=== PATIENT | female | born 1950 | race Caucasian/White ===

== ENCOUNTER 2019-07-03 05:39 | Inpatient (IN) | payer MEDICARE ==
[~2019-07-03] VITALS: Ht 154.9 cm; Wt 58.4 kg
[~2019-07-03 05:39] MED LIST: AMIT50TA PO; CALC625T23 PO; ESTR1TAB15 PO; GABA300C10 PO; LEVO125T5 PO; MELO15TA24 PO; PRENATAL PO; PROP80TA PO; SIMV10TA3 PO; TIZA4TAB2 PO
[2019-07-03 06:32] VITALS: BP 129/85
[2019-07-03] MEDS ORDERED: LACTATED RINGERS 1,000 ML IV SCH (06:36)
[2019-07-03] MEDS ORDERED: ACETAMINOPHEN 500 MG TABLET ONE (07:04)
[2019-07-03] MEDS ORDERED: GABAPENTIN 300 MG CAPSULE ONE (07:05)
[2019-07-03] MEDS ORDERED: DEXAMETHASONE 4 MG/ML, 1ML ONE ×4 (07:10→07:46)
[2019-07-03] MEDS ORDERED: CEFAZOLIN 1,000 MG ONE ×4 (07:10→07:47)
[2019-07-03] MEDS ORDERED: PROPOFOL 10 MG/ML, 20ML ONE ×3 (07:10→11:02)
[2019-07-03] MEDS ORDERED: LIDOCAINE-MPF 2% ,5ML ONE ×2 (07:10→07:43)
[2019-07-03] MEDS ORDERED: FENTANYL PF 100 MCG/2ML ONE ×5 (07:10→12:20)
[2019-07-03] MEDS ORDERED: SUCCINYLCHOLINE 20 MG/ML, 10ML ONE (07:10)
[2019-07-03] MEDS ORDERED: BUPIVACAINE/PF 0.25% ONE (07:12)
[2019-07-03] MEDS ORDERED: LIDOCAINE/PF 0.5% ,50ML ONE (07:12)
[2019-07-03] MEDS ORDERED: SODIUM CHLORIDE 0.9% PF 10ML ONE ×2 (07:13→07:47)
[2019-07-03] MEDS ORDERED: TOBRAMYCIN SULFATE 1.2 GM IMP ONE ×2 (07:13→15:15)
[2019-07-03] MEDS ORDERED: EPINEPHRINE 1 MG/ML, 1ML ONE (07:13)
[2019-07-03] MEDS ORDERED: VANCOMYCIN 1,000 MG ONE (07:13)
[2019-07-03] MEDS ORDERED: LIDOCAINE GEL 2%, 5ML ONE (07:18)
[2019-07-03] MEDS ORDERED: LABETALOL 5MG/ML, 20ML IV PRN (07:30)
[2019-07-03] MEDS ORDERED: GABAPENTIN 300 MG CAPSULE PO ONE (07:30)
[2019-07-03] MEDS ORDERED: MEPERIDINE/PF 25MG/ML,1ML IVPush PRN (07:30)
[2019-07-03] MEDS ORDERED: HYDROmorphone 2 MG/ML, 1ML IVPush PRN (07:30)
[2019-07-03] MEDS ORDERED: ONDANSETRON 2MG/ML, 2ML IV PRN (07:30)
[2019-07-03] MEDS ORDERED: EPHEDRINE 50 MG/ML, 1ML IVPush PRN (07:30)
[2019-07-03] MEDS ORDERED: ACETAMINOPHEN 500 MG TABLET PO ONE (07:30)
[2019-07-03] MEDS ORDERED: hydrALAzine 20 MG/ML, 1ML IV PRN (07:30)
[2019-07-03] MEDS ORDERED: PROMETHAZINE 25 MG/ML, 1ML IV PRN (07:30)
[2019-07-03] MEDS ORDERED: EPHEDRINE 50 MG/ML, 1ML ONE (07:40)
[2019-07-03] MEDS ORDERED: ONDANSETRON 2MG/ML, 2ML ONE (08:04)
[2019-07-03] MEDS ORDERED: PHENYLEPHRINE 10 MG/ML ONE (08:46)
[2019-07-03] MEDS ORDERED: THROMBIN 5,000 UNIT VIAL TP ONE (09:12)
[2019-07-03] MEDS: FENTANYL PF 100 MCG/2ML IV PRN ×5 (11:28→12:42)
[2019-07-03] MEDS ORDERED: OXYcodone 5 MG/5 ML ORAL.SOL UDC ONE ×2 (11:31→11:48)
[2019-07-03] MEDS: OXYcodone 5 MG/5 ML ORAL.SOL UDC PO PRN ×2 (11:32→11:50)
[2019-07-03] MEDS ORDERED: METHOCARBAMOL 1000MG/10 ML IV STA (12:14)
[2019-07-03] MEDS ORDERED: METHOCARBAMOL 1,000 MG in DEXTROSE 5% 100 ML IV ONE (12:30)
[2019-07-03] MEDS ORDERED: HYDROmorphone 2 MG/ML, 1ML ONE (12:44)
[2019-07-03] MEDS ORDERED: LORazepam 2 MG/ML, 1ML ONE (12:58)
[2019-07-03] MEDS ORDERED: LORazepam 2 MG/ML, 1ML IVPush PRN (13:30)
[2019-07-03] MEDS ORDERED: KETOROLAC 30 MG/1 ML ONE (13:33)
[2019-07-03] MEDS ORDERED: hydrALAzine 20 MG/ML, 1ML ONE (13:39)
[2019-07-03] MEDS ORDERED: KETOROLAC 30 MG/1 ML IV PRN (14:00)
[2019-07-03] MEDS ORDERED: PROMETHAZINE 25 MG/ML, 1ML IM PRN (15:00)
[2019-07-03] MEDS ORDERED: DIPHENHYDRAMINE 50 MG/ML, 1ML IM PRN (15:00)
[2019-07-03] MEDS ORDERED: PHARMACY MAY ADJ FOR RENAL FX MC PRN (15:00)
[2019-07-03] MEDS ORDERED: DIPHENHYDRAMINE 50 MG CAPSULE PO PRN (15:00)
[2019-07-03] MEDS ORDERED: DIPHENHYDRAMINE 50 MG/ML, 1ML IVPush PRN (15:00)
[2019-07-03] MEDS ORDERED: SENNA/DOCUSATE TABLET PO PRN (15:00)
[2019-07-03] MEDS ORDERED: MAGNESIUM HYDROXIDE 8%, 30ML UDC PO PRN (15:00)
[2019-07-03] MEDS ORDERED: BISACODYL 10 MG SUPP PR PRN (15:00)
[2019-07-03] MEDS: HYDROcodone/APAP 10/325 MG TABLET PO PRN ×2 (15:52→20:38)
[2019-07-03] MEDS: GABAPENTIN 300 MG CAPSULE PO SCH ×2 (16:00→20:35)
[2019-07-03] MEDS: TIZANIDINE 4MG TABLET PO SCH ×2 (16:00→21:00)
[2019-07-03] MEDS: D5%-0.9% NACL+KCL 20MEQ 1,000 ML IV SCH (16:17)
[2019-07-03] MEDS: CEFAZOLIN PMX 1GM/50ML 50 ML IVPB SCH (16:17)
[2019-07-03] MEDS ORDERED: morphine SULFATE 10 MG/ML, 1ML IVPush PRN (16:30)
[2019-07-03 19:23] VITALS: BP 122/72
[2019-07-03] MEDS: SENNA/DOCUSATE TABLET PO SCH (20:35)
[2019-07-03] MEDS: SIMVASTATIN 10 MG TABLET PO SCH (20:35)
[2019-07-03] MEDS: AMITRIPTYLINE 50 MG TABLET PO SCH (20:36)
[2019-07-03] MEDS: PROPRANOLOL 40 MG TABLET PO SCH (20:37)
[2019-07-03] MEDS: ONDANSETRON 2MG/ML, 2ML IVPush PRN (20:45)
[2019-07-03] MEDS: SODIUM CHLORIDE FLUSH 10ML SYR IVF SCH (20:46)
[2019-07-03] MEDS ORDERED: METHOCARBAMOL 750 MG in DEXTROSE 5% 100 ML IV PRN (23:00)
[2019-07-04] MEDS: CEFAZOLIN PMX 1GM/50ML 50 ML IVPB SCH (00:24)
[2019-07-04] MEDS: HYDROcodone/APAP 10/325 MG TABLET PO PRN ×5 (00:25→21:27)
[2019-07-04 00:27] VITALS: BP 121/74
[2019-07-04] MEDS: METHOCARBAMOL 750 MG in DEXTROSE 5% 100 ML IV SCH ×3 (01:37→17:57)
[2019-07-04] MEDS: ONDANSETRON 2MG/ML, 2ML IVPush PRN ×2 (03:28→12:57)
[2019-07-04] MEDS: D5%-0.9% NACL+KCL 20MEQ 1,000 ML IV SCH ×3 (03:29→21:27)
[2019-07-04 05:35] LABS: BASOPHILS # (AUTO) 0.04 x10^3/uL (0-0.1); BASOPHILS % (AUTO) 0 % (0-1); EOSINOPHILS # (AUTO) 0.16 x10^3/uL (0-0.4); EOSINOPHILS % (AUTO) 1 % (1-7); LYMPHOCYTES # (AUTO) 1.56 x10^3/uL (1-3.4); LYMPHOCYTES % (AUTO) 11 % (22-44); MD NO; MEAN CORPUSCULAR HEMOGLOBIN 32.4 pg (27.0-34.8); MEAN CORPUSCULAR VOLUME 98.2 fL (80-100); MONOCYTES % (AUTO) 9 % (2-9); NEUTROPHILS # (AUTO) 10.98 x10^3/uL (1.8-6.8); NEUTROPHILS % (AUTO) 78 % (42-75); PLATELET COUNT 242 x10^3/uL (130-400); RED BLOOD COUNT 3.45 x10^6/uL (3.82-5.3); RED CELL DISTRIBUTION WIDTH 13.7 % (9.6-15.2)
[2019-07-04 05:49] LABS: ANION GAP 6 mmol/L (5-15); CALCIUM 8.3 mg/dL (8.5-10.1); CHLORIDE 110 mmol/L (98-107)
[2019-07-04 05:50] LABS: CREATININE 0.85 mg/dL (0.55-1.02)
[2019-07-04] MEDS: LEVOTHYROXINE 125 MCG TABLET PO SCH (06:23)
[2019-07-04] MEDS: PROPRANOLOL 40 MG TABLET PO SCH ×2 (06:23→17:46)
[2019-07-04 07:08] VITALS: BP 96/60
[2019-07-04] MEDS: SENNA/DOCUSATE TABLET PO SCH ×2 (09:11→21:27)
[2019-07-04] MEDS: GABAPENTIN 300 MG CAPSULE PO SCH ×3 (09:11→21:27)
[2019-07-04] MEDS: ESTRADIOL 1 MG TABLET PO SCH (09:11)
[2019-07-04] MEDS: TIZANIDINE 4MG TABLET PO SCH ×3 (09:12→21:28)
[2019-07-04] MEDS: SODIUM CHLORIDE FLUSH 10ML SYR IVF SCH ×2 (09:12→21:28)
[2019-07-04 12:50] VITALS: BP 93/55
[2019-07-04 19:42] VITALS: BP 128/73
[2019-07-04] MEDS: SIMVASTATIN 10 MG TABLET PO SCH (21:27)
[2019-07-04] MEDS: AMITRIPTYLINE 50 MG TABLET PO SCH (21:27)
[2019-07-05] MEDS: METHOCARBAMOL 750 MG in DEXTROSE 5% 100 ML IV SCH ×2 (01:43→10:32)
[2019-07-05] MEDS: HYDROcodone/APAP 5/325 TABLET PO PRN ×2 (01:53→08:58)
[2019-07-05 02:46] VITALS: BP 118/64
[2019-07-05 05:46] LABS: BASOPHILS # (AUTO) 0.02 x10^3/uL (0-0.1); BASOPHILS % (AUTO) 0 % (0-1); EOSINOPHILS # (AUTO) 0.23 x10^3/uL (0-0.4); EOSINOPHILS % (AUTO) 2 % (1-7); LYMPHOCYTES # (AUTO) 2.64 x10^3/uL (1-3.4); LYMPHOCYTES % (AUTO) 24 % (22-44); MD NO; MEAN CORPUSCULAR HEMOGLOBIN 31.8 pg (27.0-34.8); MEAN CORPUSCULAR HGB CONC 32.6 g/dL (32.4-35.8); MEAN CORPUSCULAR VOLUME 97.5 fL (80-100); MEAN PLATELET VOLUME 6.9 fL (7.4-10.4); MONOCYTES # (AUTO) 1.03 x10^3/uL (0.2-0.8); MONOCYTES % (AUTO) 10 % (2-9); NEUTROPHILS # (AUTO) 6.88 x10^3/uL (1.8-6.8); NEUTROPHILS % (AUTO) 64 % (42-75); PLATELET COUNT 197 x10^3/uL (130-400); RED BLOOD COUNT 3.18 x10^6/uL (3.82-5.3); RED CELL DISTRIBUTION WIDTH 14.1 % (9.6-15.2)
[2019-07-05 05:54] LABS: ANION GAP 6 mmol/L (5-15); CHLORIDE 112 mmol/L (98-107); CREATININE 0.74 mg/dL (0.55-1.02)
[2019-07-05] MEDS: PROPRANOLOL 40 MG TABLET PO SCH (06:53)
[2019-07-05] MEDS: LEVOTHYROXINE 125 MCG TABLET PO SCH (06:53)
[2019-07-05] MEDS: D5%-0.9% NACL+KCL 20MEQ 1,000 ML IV SCH (07:00)
[2019-07-05 08:16] VITALS: BP 107/68
[2019-07-05] MEDS: TIZANIDINE 4MG TABLET PO SCH (08:48)
[2019-07-05] MEDS: ESTRADIOL 1 MG TABLET PO SCH (08:48)
[2019-07-05] MEDS: SODIUM CHLORIDE FLUSH 10ML SYR IVF SCH (08:49)
[2019-07-05] MEDS: SENNA/DOCUSATE TABLET PO SCH (08:49)
[2019-07-05] MEDS: GABAPENTIN 300 MG CAPSULE PO SCH (08:49)
[2019-07-05 10:57] VITALS: BP 97/64
[2019-07-05] MEDS ORDERED: METH750T87 PO (11:20)
[2019-07-05] MEDS ORDERED: HYDR-3240 PO (11:21)
[2019-07-05] MEDS ORDERED: METHOCARBAMOL 750 MG TABLET PO SCH (23:00)
[2019-07-06] MEDS ORDERED: METHOCARBAMOL 750 MG TABLET PO PRN (09:30)
== END 2019-07-05 12:13 | disposition home or self-care (01) | DRG 459 ==
LOC: ORIP 05:39 → 4NE 15:00 → DCLOUNGE 07-05 11:58
PROVIDERS: ADMIT Orthopaedic Surgery Orthopaedic Surgery of the Spine; ATTEND Orthopaedic Surgery Orthopaedic Surgery of the Spine
PROC: 4A11X4G Monitoring of Peripheral Nervous Electrical Activity, Intraoperative, External Approach (ICD-10-PCS; 2019-07-03)
PROC: 0SG10A0 Fusion of 2 or more Lumbar Vertebral Joints with Interbody Fusion Device, Anterior Approach, Anterior Column, Open Approach (ICD-10-PCS; principal; 2019-07-03 07:30)
DX: M48.061 Spinal stenosis, lumbar region without neurogenic claudication (principal); R53.2 Functional quadriplegia; M41.9 Scoliosis, unspecified; M43.16 Spondylolisthesis, lumbar region; M54.16 Radiculopathy, lumbar region; E03.9 Hypothyroidism, unspecified; G43.909 Migraine, unspecified, not intractable, without status migrainosus; F17.210 Nicotine dependence, cigarettes, uncomplicated; Z90.710 Acquired absence of both cervix and uterus
CPT/HCPCS: 36415; 72100; 80048; 85025; 93005; C1713; G0378; J0171; J0690; J1100; J1885; J2001; J2405; J2704; J3010; J3260; J3370; J3490; C1760; C1762; J0330; J0360; J2060; J2370; J2800; J3480; J7120